=== PATIENT | female | born 1995 | race African-American/Black ===

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

== ENCOUNTER 2024-10-04 10:00 | Inpatient (IN) | payer BC, MEDICAID ==
[~2024-10-04] VITALS: Ht 160 cm; Wt 65.2 kg
--- NOTE | 2024-10-04 10:24 | ED.PDOC ---
GI ASSESSMENT HPI Comments 29 y.o female presents to the ED for a chief complaint of left sided abdominal pain radiating to her back associated with nausea and dysuria that started 2 weeks ago. Patient reports pain is constant, rating a 7/10 on the pain scale at this time but last night presented at a 10/10. Patient reports recent UTI dx 2 weeks ago and was treated with antibiotics in which she completed the course. Patient denies any vomiting, diarrhea, fever, chills, hematuria, urgency, frequency, bloody stool. Patient also mentions taking an at home test yesterday which resulted negative. No medical history or allergies reported. Chief Complaint: Abdominal Pain Time Seen by MD: 10:15 Primary Care Provider: UNKNOWN Reviewed Notes: Nurses Notes, Medications, Allergies Allergies: Coded Allergies: NO KNOWN ALLERGIES (Unverified , 04/28/11) Information Source: Patient Mode of Arrival: Ambulatory Timing: Weeks (2) Duration: Since onset Quality: Aching Vomitus: None Stool: Normal Severity: Moderate Recent: Antibiotics Recent Hx of: Other (UTI ) Pain Location: Epigastric, LUQ, LLQ Modifying Factors: Nothing Associated sign and symptoms: Nausea, Abdominal Pain Past Medical History PAST MEDICAL HISTORY: UTI'S Surgical History: Denies all surgeries INSTRUMENTS SALES REPRESENTATIVE History: No Pertinent INSTRUMENTS SALES REPRESENTATIVE History Family History Family History: Unobtainable Social History Smoker: Non-Smoker Alcohol: Denies ETOH Use Drugs: Denies Drug Use Lives In: Home Constitutional: denies: chills, diaphoresis, fatigue, fever, malaise, sweats, weakness, others EENTM: denies: blurred vision, double vision, ear bleeding, ear discharge, ear drainage, ear pain, ear ringing, eye pain, eye redness, hearing loss, mouth pain, mouth swelling, nasal discharge, nose bleeding, nose congestion, nose pain, photophobia, tearing, throat pain, throat swelling, voice changes, others Respiratory: denies: cough, hemoptysis, orthopnea, SOB at rest, shortness of breath, SOB with excertion, stridor, wheezing, others Cardiovascular: denies: chest pain, dizzy spells, diaphoresis, Dyspnea on exertion, edema, irregular heart beat, left arm pain, lightheadedness, palpitations, PND, syncope, others Gastrointestinal: reports: abdominal pain, nausea; denies: abdomen distended, blood streaked bowels, constipated, diarrhea, dysphagia, difficulty swallowing, hematemesis, melena, poor appetite, poor fluid intake, rectal bleeding, rectal pain, vomiting, others Genitourinary: reports: dysuria; denies: abnormal vagina bleeding, burning, dy spareunia, flank pain, frequency, hematuria, incontinence, pain, , vagina discharge, urgency, others Neurological: denies: dizziness, fainting, headache, left sided numbness, left sided weakness, numbness, paresthesia, pre-existing deficit, right sided numbness, right sided weakness, seizure, speech problems, tingling, tremors, weakness, others Musculoskeletal: denies: back pain, gout, joint pain, joint swelling, muscle pain, muscle stiffness, neck pain, others Integumetry: denies: bruises, change in color, change in hair/nails, dryness, laceration, lesions, lumps, rash, wounds, others Allergic/Immunocompromised: denies: Difficulty Healing, Frequent Infections, Hi ves, Itching, others Hematologic/Lymphatic: denies: anemia, blood clots, easy bleeding, easy bruising, swollen glands, others Endocrine: denies: excessive hunger, excessive sweating, excessive thirst, excessive urination, flushing, intolerance to cold, intolerance to heat, unexplained weight gain, unexplained weight loss, others Psychiatric: denies: anxiety, bipolar disorder, depression, hopeless, panic disorder, schizophrenia, sleepless, suicidal, others All Other Systems: Reviewed and Negative Physical Exam General Appearance: Moderate Distress HEENT: Normal ENT Inspection, Pharynx Normal, TMs Normal Neck: Full Range of Motion, Non-Tender, Normal, Normal Inspection Respiratory: Chest Non-Tender, Lungs Clear, No Accessory Muscle Use, No Respiratory Distress, Normal Breath Sounds Cardiovascular: No Edema, No JVD, No Murmur, No Gallop, Normal Peripheral Pulses, Regular Rate/Rhythm Breast Exam: Deferred Gastrointestinal: LLQ, No Organomegaly, No Pulsatile Mass, Normal Bowel Sounds, Soft, Tenderness Genitalia: Deferred Pelvic: Deferred Rectal: Deferred Extremities: No calf tenderness, Normal capillary refill, No pedal edema Musculoskeletal : Apperance: Normal Neurologic: Alert, coordinator mining products II-XII nml as Tested, Motor Weakness, Normal Affect, Normal Mood, No Sensory Deficits Cerebellar Function: Normal Reflexes: Normal Skin: Dry, Normal Color, Warm Lymphatic: No Adenopathy Was a procedure done? Was a procedure done?: No GI differential Dx Differential Diagnosis: Gastroenteritis, UTI, Electrolyte Imbalance, Food Poisoning, , Bacterial, Viral X-Ray, Labs, Meds, VS Vital Signs Date Time Temp Pulse Resp B/P (MAP) Pulse Ox O2 Delivery O2 Flow Rate FiO2 10/04/24 12:14 98.7 80 18 141/83 (102) 99 98.7 10/04/24 12:14 80 18 99 10/04/24 10:00 98.8 110 17 149/75 (99) 100 98.8 Lab Test 10/04/24 10:48 10/04/24 10:18 Range/Units White Blood Count 7.9 4.4-10.8 10^3/uL Red Blood Count 5.19 4.0-5.20 10^6/uL Hemoglobin 15.2 12.2-16.2 g/dL Hematocrit 45.2 36.0-46.0 % Mean Corpuscular Volume 87.1 80.0-100.0 fL Mean Corpuscular Hemoglobin 29.3 28.0-32.0 pg Mean Corpuscular Hemoglobin Concent 33.6 32.0-36.0 g/dL Red Cell Distribution Width 13.2 11.8-14.3 % Platelet Count 262 140-450 10^3/uL Mean Platelet Volume 9.6 6.9-10.8 fL Neutrophils (%) (Auto) 71.0 37.0-80.0 % Lymphocytes (%) (Auto) 19.9 10.0-50.0 % Monocytes (%) (Auto) 8.0 0.0-12.0 % Eosinophils (%) (Auto) 0.9 0.0-7.0 % Basophils (%) (Auto) 0.2 0.0-2.0 % Neutrophils # (Auto) 5.6 1.6-8.6 10 ^3/uL Lymphocytes # (Auto) 1.6 0.4-5.4 10 ^3/uL Monocytes # (Auto) 0.6 0-1.3 10 ^3/uL Eosinophils # (Auto) 0.1 0-0.8 10 ^3/uL Basophils # (Auto) 0 0-0.2 10 ^3/uL Nucleated Red Blood Cells 0.1 % Sodium Level 137 136-145 mmol/L Potassium Level 4.2 3.5-5.1 mmol/L Chloride Level 102 98-107 mmol/L Carbon Dioxide Level 26 20-31 mmol/L Anion Gap 9 5-15 Blood Urea Nitrogen 9 9-23 mg/dL Creatinine 0.84 0.550-1.02 mg/dL Glomerular Filtration Rate Calc 98 >90 mL/min BUN/Creatinine Ratio 10.7 10.0-20.0 Serum Glucose 97 74-106 mg/dL Calcium Level 10.4 8.7-10.4 mg/dL Total Bilirubin 0.9 0.2-1.0 mg/dL Aspartate Amino Transferase (AST) 19 13-40 U/L Alanine Aminotransferase (ALT) 10 7-40 U/L Alkaline Phosphatase 66 46-116 U/L Total Protein 8.1 5.7-8.2 g/dL Albumin 5.0 H 3.2-4.8 g/dL Urine Color Colorless Yellow Urine Clarity Turbid H Clear Urine pH 6.5 5.0-9.0 Urine Specific [place] 1.008 1.001-1.035 Urine Protein Negative Negative Urine Ketones Negative Negative Urine Blood Trace H Negative /uL Urine Nitrite Negative Negative Urine Bilirubin Negative Negative Urine Urobilinogen Normal Negative mg/dL Urine Leukocyte Esterase 3+ Negative /uL Urine RBC 2 0 - 4 /hpf Urine Microscopic WBC 26 H 0-5 /HPF Urine Squamous Epithelial Cells Few <5 /hpf Urine Bacteria Few H None Seen /hpf Urine Glucose Normal Normal mg/dL Urine Test Negative Negative The patient's urine test is positive for UTI The patient was given Rocephin 1 g IV piggyback IV Hep-Lock was established patient was also given Rocephin 1 g IV piggyback The patient was given morphine for the pain and Zofran for the nausea The CBC is within normal limits. The chemistry panel is within normal limits The patient is still having persistent pain The recommendation of the CAT scan shows that there is a possible abnormality of the left ovary They advise that we get a pelvic ultrasound The patient is being admitted at this time Images Reviewed?: Images reviewed and evaluated by me Time of 1ST Reevaluation: 10:24 Reevaluation 1ST: Unchanged Patient Education/Counseling: Diagnosis, Treatment, Prognosis Family Education/Counseling: No Family Present SEPSIS Sepsis Screen Physician Orders Ct Ab Pel Wo Con-No Oral Or Iv (10/04/24 10:18) Heplock Iv (10/04/24 ) Morphine Sulfate Injection (10/04/24 13:00) Ondansetron Hcl (Zofran) (10/04/24 13:00) Vital Signs Date Time Temp Pulse Resp B/P (MAP) Pulse Ox O2 Delivery O2 Flow Rate FiO2 10/04/24 12:14 98.7 80 18 141/83 (102) 99 98.7 10/04/24 12:14 80 18 99 10/04/24 10:00 98.8 110 17 149/75 (99) 100 98.8 Laboratory Tests Test 10/04/24 10:48 White Blood Count 7.9 10^3/uL (4.4-10.8) Departure 1 Departure Time of Disposition: 12:49 Impression: Primary Impression: Pelvic pain Additional Impression: Intractable abdominal pain Disposition: 09 ADMITTED INPATIENT Admit to: Med Surg Condition: Fair Critical Care Note Critical Care Time?: No Stability Stability form required: Yes Unstable for transfer: ED Physician Assesment (Clinical assesment) I personally scribed for LYNDA SANDOVAL MD ([email or web address]) on 10/04/24 at 10:24. Electronically submitted by Lashae Ni ([facility]). LYNDA SANDOVAL MD Oct 04, 2024 10:24
[2024-10-04 10:55] LABS: Urine Protein, UAD Negative (Negative)
[2024-10-04 11:16] LABS: Hematocrit 45.2 % (36.0-46.0); Hemoglobin 15.2 g/dL (12.2-16.2); Mean Corpuscular Hemoglobin 29.3 pg (28.0-32.0); Mean Corpuscular Volume 87.1 fL (80.0-100.0); Nucleated Red Blood Cells % 0.1 %
[2024-10-04 11:37] LABS: Alanine Aminotransferase 10 U/L (7-40); Albumin 5.0 g/dL (3.2-4.8); Alkaline Phosphatase 66 U/L (46-116); Anion Gap 9 (5-15); BUN/Creatinine Ratio 10.7 (10.0-20.0); Bilirubin, Total 0.9 mg/dL (0.2-1.0); Blood Urea Nitrogen 9 mg/dL (9-23); Calcium 10.4 mg/dL (8.7-10.4); Carbon Dioxide 26 mmol/L (20-31); Chloride 102 mmol/L (98-107); Glucose 97 mg/dL (74-106); Potassium 4.2 mmol/L (3.5-5.1); Sodium 137 mmol/L (136-145); Total Protein 8.1 g/dL (5.7-8.2)
--- NOTE | 2024-10-04 12:45 | DVH ---
Exam: CT CT AB PEL WO CON-NO ORAL OR IV History: left sided abd pain Comparison Study: None Technique: Multidetector spiral CT of the abdomen and pelvis was performed from lung bases to pubic symphysis. Imaging was performed without IV contrast. Axial, coronal and sagittal multiplanar reform ats were obtained from the axial data set by the technologist. Radiation dose : Abdomen/Pelvis: CTDIvol 6 mGy, DLP 338 mGy*cm. Findings: Evaluation of solid organs is limited due to lack of intravenous contrast use. Lung Bases: No acute or significant lung base finding. Normal heart size. No pleural or pericardial effusion. Liver: The liver is normal in size. No focal lesions. Gallbladder and biliary Tree: Unremarkable Spleen: Unremarkable Pancreas: The pancreas is grossly normal in appearance. Adrenal Glands: Unremarkable Kidneys: Kidneys are grossly normal without calculi or hydronephrosis. Bladder: Grossly unremarkable for degree of distention. Bowel: The stomach is grossly normal in appearance. Small bowel and colon are normal in caliber and d istribution. Normal appendix is visualized in the right lower quadrant without findings of appendicit is. Ascites: Absent Lymphadenopathy: No mesenteric, retroperitoneal or periportal lymphadenopathy. Abdominal wall and Mesentery: Unremarkable. Vasculature: The visualized abdominal aorta is normal in size and caliber. Evaluation of abdominal a nd pelvic vessels is limited due to lack of intravenous contrast. Pelvic Organs: Left ovarian appears prominent measuring up to 43 mm, possibly due to a cyst. Musculoskeletal: No aggressive focal bony lesions, acute fractures or dislocation. IMPRESSION: 1. No acute abdominal or pelvic findings. Prominent left ovary measuring up to 43 mm possibly due to a cyst. Consider further evaluation with pelvic ultrasound. Radiation optimization: All CT scans at this facility use at least one of these dose optimization nitza hniques: Automated exposure control mA and/or kV adjustment per patient size (includes targeted exams where dose is matched to clinical indication) or iterative reconstruction. HS:Y
[2024-10-04] MEDS: MORPHINE SULFATE 4 MG/ML SYR/VIAL IV ONE (13:35)
[2024-10-04] MEDS: ONDANSETRON HCL 4 MG/2 ML VIAL IV ONE (13:36)
[2024-10-04] MEDS ORDERED: DOCUSATE SOD 100 MG CAP PO PRN (14:30)
[2024-10-04] MEDS ORDERED: ONDANSETRON HCL 4 MG/2 ML VIAL IV PRN (14:30)
[2024-10-04] MEDS: SODIUM CHLORIDE 0.9% 1,000 ML IV ONE ×2 (14:30→16:15)
--- NOTE | 2024-10-04 14:46 | DVHHP2 ---
History of Present Illness Reason for Visit: abdominal pain History of Present Illness Judy Morales is a 29-year-old female with no significant past medical history who came in for abdominal pain. Patient states she had a UTI a little over a week ago that she was treated with levofloxacin for 7 days, she took the full course, but her symptoms did not improve. Now she is also complaining of flank pain and severe pelvic pain. She states she continues to have dysuria, and frequency with urination. Past Surgical History: None Smoke: No ALCOHOL: occassional Drugs: None Lives: with Family Domestic Violence: Neg Review of Systems Constitutional: No: Fever, Chills, Sweats, Weakness, Malaise, Other Eyes: No: Pain, Vision change, Conjunctivae inflammation, Eyelid inflammation, Other, Redness ENT: No: Ear pain, Ear discharge, Nose pain, Nose discharge, Nose congestion, Mouth pain, Mouth swelling, Throat pain, Throat swelling, Other Respiratory: No: Cough, Dry, Shortness of breath, SOB with excertion, Wheezing, Hemoptysis, Pleuritic Pain, Sputum, Wheezing, Other Cardiovascular: No: Chest Pain, Palpitations, Orthopnea, Paroxysmal Noc. Dyspnea, Edema, Lt Headedness, Other Gastrointestinal: Abdominal Pain; No: Nausea, Vomiting, Diarrhea, Constipation, Melena, Hematochezia, Other Genitourinary: Dysuria, Frequency; No Incontinence, No Hematuria, No Retention, No Other Musculoskeletal: back pain (flank pain); No: other, neck pain, shoulder pain, arm pain, hand pain, leg pain, foot pain Skin: No: Rash, Lesions, Jaundice, Bruising, Other Neurological: No: Weakness, Numbness, Incoordination, Change in speech, Confusion, Seizures, Other Allergies: Coded Allergies: NO KNOWN ALLERGIES (Unverified , 04/28/11) Medications Current Medications Medications Dose Ordered Sig/[place] Route Start Time Stop Time Status Last Admin Dose Admin Acetaminophen/ Hydrocodone Bitart 1 tab Q4HP PRN PO 10/04/24 14:30 UNV Ondansetron HCl 4 mg Q4HP PRN IV 10/04/24 14:30 UNV Docusate Sodium 100 mg BIDPRN PRN PO 10/04/24 14:30 UNV Acetaminophen 650 mg Q6HP PRN PO 10/04/24 14:30 UNV Ceftriaxone Sodium 50 ml @ 100 mls/hr DAILY@09 IV 10/05/24 09:00 UNV Exam Vital Signs Vital Signs Date Time Temp Pulse Resp B/P (MAP) Pulse Ox O2 Delivery O2 Flow Rate FiO2 10/04/24 13:26 Room Air* 0 21 10/04/24 13:26 98.7 7 17 142/83 (102) 99 98.7 General Appearance: Alert, Oriented X3, Cooperative, mild distress HEENT: Atraumatic, PERRLA, Mucous membr. moist/pink Respiratory: Clear to auscultation, Normal air movement Cardiovascular: Regular rate, Normal S1, Normal S2 Abdominal: Normal bowel sounds, Soft, Other (Pelvic pain, flank pain) Extremities: No clubbing, No cyanosis, No edema, Normal pulses, No tenderness/swelling Skin: No rashes, No breakdown, No significant lesion Neuro: Normal gait, Normal speech, Strength at 5/5 X4 ext Psych/Mental Status: Mental status NL, Mood NL Labs/Xrays Labs Test 10/04/24 10:48 10/04/24 10:18 Range/Units White Blood Count 7.9 4.4-10.8 10^3/uL Red Blood Count 5.19 4.0-5.20 10^6/uL Hemoglobin 15.2 12.2-16.2 g/dL Hematocrit 45.2 36.0-46.0 % Mean Corpuscular Volume 87.1 80.0-100.0 fL Mean Corpuscular Hemoglobin 29.3 28.0-32.0 pg Mean Corpuscular Hemoglobin Concent 33.6 32.0-36.0 g/dL Red Cell Distribution Width 13.2 11.8-14.3 % Platelet Count 262 140-450 10^3/uL Mean Platelet Volume 9.6 6.9-10.8 fL Neutrophils (%) (Auto) 71.0 37.0-80.0 % Lymphocytes (%) (Auto) 19.9 10.0-50.0 % Monocytes (%) (Auto) 8.0 0.0-12.0 % Eosinophils (%) (Auto) 0.9 0.0-7.0 % Basophils (%) (Auto) 0.2 0.0-2.0 % Neutrophils # (Auto) 5.6 1.6-8.6 10 ^3/uL Lymphocytes # (Auto) 1.6 0.4-5.4 10 ^3/uL Monocytes # (Auto) 0.6 0-1.3 10 ^3/uL Eosinophils # (Auto) 0.1 0-0.8 10 ^3/uL Basophils # (Auto) 0 0-0.2 10 ^3/uL Nucleated Red Blood Cells 0.1 % Sodium Level 137 136-145 mmol/L Potassium Level 4.2 3.5-5.1 mmol/L Chloride Level 102 98-107 mmol/L Carbon Dioxide Level 26 20-31 mmol/L Anion Gap 9 5-15 Blood Urea Nitrogen 9 9-23 mg/dL Creatinine 0.84 0.550-1.02 mg/dL Glomerular Filtration Rate Calc 98 >90 mL/min BUN/Creatinine Ratio 10.7 10.0-20.0 Serum Glucose 97 74-106 mg/dL Calcium Level 10.4 8.7-10.4 mg/dL Total Bilirubin 0.9 0.2-1.0 mg/dL Aspartate Amino Transferase (AST) 19 13-40 U/L Alanine Aminotransferase (ALT) 10 7-40 U/L Alkaline Phosphatase 66 46-116 U/L Total Protein 8.1 5.7-8.2 g/dL Albumin 5.0 H 3.2-4.8 g/dL Urine Color Colorless Yellow Urine Clarity Turbid H Clear Urine pH 6.5 5.0-9.0 Urine Specific [place] 1.008 1.001-1.035 Urine Protein Negative Negative Urine Ketones Negative Negative Urine Blood Trace H Negative /uL Urine Nitrite Negative Negative Urine Bilirubin Negative Negative Urine Urobilinogen Normal Negative mg/dL Urine Leukocyte Esterase 3+ Negative /uL Urine RBC 2 0 - 4 /hpf Urine Microscopic WBC 26 H 0-5 /HPF Urine Squamous Epithelial Cells Few <5 /hpf Urine Bacteria Few H None Seen /hpf Urine Glucose Normal Normal mg/dL Urine Test Negative Negative Exam: CT CT AB PEL WO CON-NO ORAL OR IV Findings: Evaluation of solid organs is limited due to lack of intravenous contrast use. Lung Bases: No acute or significant lung base finding. Normal heart size. No pleural or pericardial effusion. Liver: The liver is normal in size. No focal lesions. Gallbladder and biliary Tree: Unremarkable Spleen: Unremarkable Pancreas: The pancreas is grossly normal in appearance. Adrenal Glands: Unremarkable Kidneys: Kidneys are grossly normal without calculi or hydronephrosis. Bladder: Grossly unremarkable for degree of distention. Bowel: The stomach is grossly normal in appearance. Small bowel and colon are normal in caliber and distribution. Normal appendix is visualized in the right lower quadrant without findings of appendicitis. Ascites: Absent Lymphadenopathy: No mesenteric, retroperitoneal or periportal lymphadenopathy. Abdominal wall and Mesentery: Unremarkable. Vasculature: The visualized abdominal aorta is normal in size and caliber. Evaluation of abdominal and pelvic vessels is limited due to lack of intravenous contrast. Pelvic Organs: Left ovarian appears prominent measuring up to 43 mm, possibly due to a cyst. Musculoskeletal: No aggressive focal bony lesions, acute fractures or dislocation. IMPRESSION: 1. No acute abdominal or pelvic findings. Prominent left ovary measuring up to 43 mm possibly due to a cyst. Consider further evaluation with pelvic ultrasound. SEPSIS Sepsis Screen Date sepsis recognized/suspect: Oct 04, 2024 Time Sepsis recognized/suspect: 1000 Recent Procedure: No On Antibiotic Therapy: No Respiratory Rate >20: No Heart Rate >90: Yes Temp<36 C (96.8 F) or >38.3 C: No SBP <90 or MAP <65 mmHG: No New Acute Mental Status Change: No Is the patient on CPAP, BIPAP,: No Physician Orders Ct Ab Pel Wo Con-No Oral Or Iv (10/04/24 10:18) Heplock Iv (10/04/24 ) Admit (10/04/24 14:21) Code Status (10/04/24 14:21) Hydrocodone-Acet 5/325mg Tab ([place] 5/32 (10/04/24 14:30) Ondansetron Hcl (Zofran) (10/04/24 14:30) Docusate Sodium Capsule (Colace Capsule) (10/04/24 14:30) Complete Blood Count (10/05/24 04:00) Comprehensive Metabolic Panel (10/05/24 04:00) Condition: Serious (10/04/24 14:21) Acetaminophen Tablet (Tylenol Tablet) (10/04/24 14:30) Ceftriaxone 1gm/50ml D5w (Rocephin) (10/05/24 09:00) Ceftriaxone 1gm/50ml D5w (Rocephin) (10/04/24 14:30) Urine Bacterial Culture (10/04/24 14:21) Vital Signs Date Time Temp Pulse Resp B/P (MAP) Pulse Ox O2 Delivery O2 Flow Rate FiO2 10/04/24 13:26 Room Air* 0 21 10/04/24 13:26 98.7 7 17 142/83 (102) 99 98.7 10/04/24 12:14 98.7 80 18 141/83 (102) 99 98.7 10/04/24 12:14 80 18 99 10/04/24 10:00 98.8 110 17 149/75 (99) 100 98.8 Laboratory Tests Test 10/04/24 10:48 White Blood Count 7.9 10^3/uL (4.4-10.8) Medications Medications Dose Ordered Sig/[place] Route Start Time Stop Time Status Last Admin Dose Admin Ondansetron HCl 4 mg ONCE ONCE IV 10/04/24 13:00 10/04/24 13:01 DC 10/04/24 13:36 4 MG Assessment/Plan Assessment/Plan Assessment: Complicated urinary tract infection, failed PO antibiotics, Intractable abdominal pain, Possible Pyelonephritis, Plan: Admit to Med-Surg, IV antibiotics, IV hydration, Urine culture, Pain control, Plan discussed with: Patient My Orders Orders - KOKO GUZMAN Procedure Category Date Status Time Admit ADMIT 10/04/24 Transmitted 14:21 Code Status CODE 10/04/24 Transmitted 14:21 Hydrocodone-Acet PHA 10/04/24 Logged 5/325mg Tab ([place] 14:30 Ondansetron Hcl PHA 10/04/24 Logged (Zofran) 14:30 Docusate Sodium PHA 10/04/24 Logged Capsule (Colace 14:30 Complete Blood Count LAB 10/05/24 Verified 04:00 Comprehensive LAB 10/05/24 Verified Metabolic Panel 04:00 Condition: Serious KAYLEE 10/04/24 In Process 14:21 Acetaminophen Tablet PHA 10/04/24 Logged (Tylenol Tablet) 14:30 Ceftriaxone 1gm/50ml PHA 10/05/24 Logged D5w (Rocephin) 09:00 Ceftriaxone 1gm/50ml PHA 10/04/24 Logged D5w (Rocephin) 14:30 Urine Bacterial DAVIDSON 10/04/24 Logged Culture 14:21 Date of Service: Oct 04, 2024 Billing Provider: KOKO GUZMAN Common Visit Codes: [id number] INP/OBS CARE (MOD) KOKO GUZMAN MEAT LUGGER Oct 04, 2024 14:46
[2024-10-04 15:28] VITALS: BP 121/71; PULSE 85; RESP 17; TEMP 98.2; O2SAT 99
[2024-10-04] MEDS: ACETAMINOPHEN 325 MG TAB PO PRN (16:04)
[2024-10-04 17:15] VITALS: BP 119/65; PULSE 67; RESP 18; TEMP 98.4; O2SAT 100
[2024-10-04] MEDS: cefTRIAXone 1GM/50ML D5W 50 ML IV ONE (17:23)
[2024-10-04 23:01] VITALS: BP 116/72; PULSE 78; RESP 20; TEMP 98.4; O2SAT 97
[2024-10-05 07:17] LABS: Hematocrit 38.5 % (36.0-46.0); Hemoglobin 13.3 g/dL (12.2-16.2); Mean Corpuscular Hemoglobin 29.8 pg (28.0-32.0); Mean Corpuscular Volume 86.4 fL (80.0-100.0); Nucleated Red Blood Cells % 0.0 %
[2024-10-05 07:35] LABS: Albumin 4.3 g/dL (3.2-4.8); Alkaline Phosphatase 56 U/L (46-116); Anion Gap 8 (5-15); BUN/Creatinine Ratio 12.9 (10.0-20.0); Blood Urea Nitrogen 11 mg/dL (9-23); Calcium 9.8 mg/dL (8.7-10.4); Carbon Dioxide 26 mmol/L (20-31); Chloride 103 mmol/L (98-107); Glucose 95 mg/dL (74-106); Potassium 4.2 mmol/L (3.5-5.1); Sodium 137 mmol/L (136-145); Total Protein 6.9 g/dL (5.7-8.2)
[2024-10-05 07:36] LABS: Bilirubin, Total 0.5 mg/dL (0.2-1.0)
[2024-10-05 07:37] LABS: Alanine Aminotransferase < 9 U/L (7-40)
[2024-10-05 08:00] VITALS: PULSE 79; RESP 20; O2SAT 100
[2024-10-05 09:00] VITALS: BP 112/73; PULSE 79; RESP 20; TEMP 98.4; O2SAT 100
[2024-10-05] MEDS: cefTRIAXone 1GM/50ML D5W 50 ML IV SCH (09:27)
[2024-10-05 12:45] VITALS: BP 116/68; PULSE 62; RESP 20; TEMP 98.6; O2SAT 99
--- NOTE | 2024-10-05 13:36 | DVHPNRES ---
Progress Note Date Seen: Oct 05, 2024 Resident Creating Document: CRISTINO SELBY Has the PT tested + for MRSA If YES, has PT been informed?: No Medical Necessity Reason Pt with a Central, PICC or Fol: No Subjective Review of Systems This is 29-year-old female with past medical history of UTI, who came to the hospital for abdominal pain. Patient reports that abdominal pain started approximately 2 weeks ago and has become significantly worse over the past 2 days. Patient also reports a prior ER visit 3 weeks ago for similar abdominal pain, during which a diagnosis of UTI was made. Patient was prescribed a 7-day course of levofloxacin at that time but reports no improvement in symptoms. Patient complains with flank pain and severe pelvic pain. Patient continue to have dysuria and frequency with urination. Abdomen/Pelvic CT- No acute abdominal or pelvic findings. Prominent left ovary measuring up to 43 mm possibly due to a cyst. Consider further evaluation with pelvic ultrasound. Pelvic US- Patient refused transvaginal examination. Enlarged uterus. Right ovary not visualized. 4 cm left ovarian cyst. HIV 1&2 Antibody (LAB) - Negative Review of Systems Constitutional: No: Fever, Chills, Sweats, Weakness, Malaise, Other Eyes: No: Pain, Vision change, Conjunctivae inflammation, Eyelid inflammation, Other, Redness ENT: No: Ear pain, Ear discharge, Nose pain, Nose discharge, Nose congestion, Mouth pain, Mouth swelling, Throat pain, Throat swelling, Other Respiratory: No: Cough, Dry, Shortness of breath, SOB with excertion, Wheezing, Hemoptysis, Pleuritic Pain, Sputum, Wheezing, Other Cardiovascular: No: Chest Pain, Palpitations, Orthopnea, Paroxysmal Noc. Dyspnea, Edema, Lt Headedness, Other Gastrointestinal: Abdominal Pain; No: Nausea, Vomiting, Diarrhea, Constipation, Melena, Hematochezia, Other Genitourinary: Dysuria, Frequency; No Incontinence, No Hematuria, No Retention, No Other Musculoskeletal: back pain (flank pain); No: other, neck pain, shoulder pain, arm pain, hand pain, leg pain, foot pain Skin: No: Rash, Lesions, Jaundice, Bruising, Other Neurological: No: Weakness, Numbness, Incoordination, Change in speech, Confusion, Seizures, Other Allergies: Coded Allergies: NO KNOWN ALLERGIES (Unverified , 04/28/11) Objective vital signs Vital Sign Date Time Temp Pulse Resp B/P (MAP) Pulse Ox O2 Delivery O2 Flow Rate FiO2 10/05/24 12:45 98.6 62 20 116/68 (84) 99 98.6 10/05/24 08:00 Room Air* 0 21 Total Intake and Output 10/04/24 10/04/24 10/05/24 15:00 23:00 07:00 Intake Total 240 ml 286 ml Balance 240 ml 286 ml medications Current Medications Medications Dose Ordered Sig/[place] Route Start Time Stop Time Status Last Admin Dose Admin Acetaminophen/ Hydrocodone Bitart 1 tab Q4HP PRN PO 10/04/24 14:30 Ondansetron HCl 4 mg Q4HP PRN IV 10/04/24 14:30 Docusate Sodium 100 mg BIDPRN PRN PO 10/04/24 14:30 Acetaminophen 650 mg Q6HP PRN PO 10/04/24 14:30 10/04/24 16:04 650 MG Ceftriaxone Sodium 50 ml @ 100 mls/hr DAILY@09 IV 10/05/24 09:00 10/05/24 09:27 100 MLS/HR Doxycycline Monohydrate 100 mg Q12HR PO 10/05/24 22:00 laboratory and microbiology Laboratory Tests 10/05/24 06:47 Test 10/05/24 06:47 Range/Units Serum Glucose 95 74-106 mg/dL Microbiology Date/Time Source Procedure Growth Status 10/04/24 10:18 Voided Urine Urine Culture - Preliminary Resulted Labs and/or images reviewed: Labs reviewed by me, Image(s) reviewed by me Problem List/Assessment/Plan Problem List/Assessment/Plan # Complicated urinary tract infection, failed PO antibiotics, -continue Doxycycline monohydrate (Vibramycin Tablet) -continue Ceftriaxone Sodium -continue Acetaminophen (Tylenol Tablet) -continue Hydrocodone Bitart/Acetaminophen (Narco 5/325MG Tab) # Intractable abdominal pain possible due to Pyelonephritis/PID/STI -HIV 1&2 Antibody (LAB) - Negative -Abdomen/Pelvic CT- No acute abdominal or pelvic findings. Prominent left ovary measuring up to 43 mm possibly due to a cyst. Consider further evaluation with pelvic ultrasound. -Pelvic US- Patient refused transvaginal examination. Enlarged uterus. Right ovary not visualized. 4 cm left ovarian cyst. -Pending Urine Bacterial Culture ([facility]) -Pending Chlamydia/GC Amplification (LAB) Goal of care discussed with the patient for more than 20 minutes full code Plan discussed with Dr. Navarro Plan discussed with: Patient, Other (RN) Date of Service: Oct 05, 2024 Billing Provider: KEVON NAVARRO MD Common Visit Codes: [id number] INP/OBS CARE(HIGH) CRISTINO SELBY RESIDENT Oct 05, 2024 13:36 D[place] HURLEY RESIDENT Oct 05, 2024 17:17 KEVON NAVARRO MD Oct 07, 2024 14:28
[2024-10-05] MEDS: DOXYCYCLINE 100 MG TAB/CAP PO ONE (13:42)
--- NOTE | 2024-10-05 14:10 | DVH ---
INDICATION: Left ovarian cyst TECHNIQUE: Multiple real-time grayscale transabdominal sonographic images along with color and duplex Doppler of the uterus and ovaries were obtained. COMPARISON: None FINDINGS: The uterus measures 9 x 6 x 4 cm. The endometrial stripe measures 1.2cm. Right ovary not seen. Left ovary measures 5 x 4 x 5 cm. 4 cm left ovarian cyst. Vascular flow seen i n the left ovary. IMPRESSION: 1. Patient refused transvaginal examination. Enlarged uterus. Right ovary not visualized. 4 cm left ovarian cyst.
[2024-10-05 20:00] VITALS: PULSE 85; RESP 20; O2SAT 100
[2024-10-05 21:00] VITALS: BP 124/74; PULSE 85; RESP 20; TEMP 98.3; O2SAT 98
[2024-10-05] MEDS: DOXYCYCLINE 100 MG TAB/CAP PO SCH (21:52)
[2024-10-06] MEDS: HYDROcodone-ACET 5/325MG TAB PO PRN (00:20)
[2024-10-06 01:00] VITALS: BP 115/83; PULSE 81; RESP 20; TEMP 98; O2SAT 97
[2024-10-06 09:00] VITALS: BP 118/93; PULSE 85; RESP 17; TEMP 98.3; O2SAT 97
[2024-10-06 11:53] LABS: Hematocrit 42.0 % (36.0-46.0); Hemoglobin 14.2 g/dL (12.2-16.2); Mean Corpuscular Hemoglobin 29.2 pg (28.0-32.0); Mean Corpuscular Volume 86.6 fL (80.0-100.0); Nucleated Red Blood Cells % 0.0 %
[2024-10-06 12:00] LABS: Chloride 103 mmol/L (98-107); Potassium 4.3 mmol/L (3.5-5.1); Sodium 138 mmol/L (136-145)
[2024-10-06 12:01] LABS: Anion Gap 7 (5-15); Carbon Dioxide 28 mmol/L (20-31)
[2024-10-06 12:02] LABS: Calcium 10.3 mg/dL (8.7-10.4)
[2024-10-06 12:06] LABS: BUN/Creatinine Ratio 14.6 (10.0-20.0); Blood Urea Nitrogen 12 mg/dL (9-23); Glucose 93 mg/dL (74-106)
[2024-10-06] MEDS: FLUCONAZOLE 100 MG TAB PO ONE (12:17)
[2024-10-06 13:00] VITALS: BP 110/66; PULSE 74; RESP 18; TEMP 98; O2SAT 98
[2024-10-06] MEDS ORDERED: CEPH250C PO (14:06)
[2024-10-06] MEDS ORDERED: FLUC100T34 PO (14:06)
--- NOTE | 2024-10-06 15:21 | DVHDSRES ---
Discharge Summary Date of Admission Resident Creating Document: CRISTINO SELBY RESIDENT Oct 04, 2024 at 14:21 Date of Discharge: Oct 06, 2024 Admitting Diagnosis Abdominal pain Labs/Diagnostic Data: Laboratory Results Test 10/06/24 11:05 10/05/24 06:47 10/04/24 10:18 White Blood Count 6.7 10^3/uL (4.4-10.8) Red Blood Count 4.86 10^6/uL (4.0-5.20) Hemoglobin 14.2 g/dL (12.2-16.2) Hematocrit 42.0 % (36.0-46.0) Mean Corpuscular Volume 86.6 fL (80.0-100.0) Mean Corpuscular Hemoglobin 29.2 pg (28.0-32.0) Mean Corpuscular Hemoglobin Concent 33.8 g/dL (32.0-36.0) Red Cell Distribution Width 13.3 % (11.8-14.3) Platelet Count 236 10^3/uL (140-450) Mean Platelet Volume 9.5 fL (6.9-10.8) Neutrophils (%) (Auto) 64.5 % (37.0-80.0) Lymphocytes (%) (Auto) 23.8 % (10.0-50.0) Monocytes (%) (Auto) 10.5 % (0.0-12.0) Eosinophils (%) (Auto) 1.0 % (0.0-7.0) Basophils (%) (Auto) 0.2 % (0.0-2.0) Neutrophils # (Auto) 4.3 10 ^3/uL (1.6-8.6) Lymphocytes # (Auto) 1.6 10 ^3/uL (0.4-5.4) Monocytes # (Auto) 0.7 10 ^3/uL (0-1.3) Eosinophils # (Auto) 0.1 10 ^3/uL (0-0.8) Basophils # (Auto) 0 10 ^3/uL (0-0.2) Nucleated Red Blood Cells 0.0 % Sodium Level 138 mmol/L (136-145) Potassium Level 4.3 mmol/L (3.5-5.1) Chloride Level 103 mmol/L (98-107) Carbon Dioxide Level 28 mmol/L (20-31) Anion Gap 7 (5-15) Blood Urea Nitrogen 12 mg/dL (9-23) Creatinine 0.82 mg/dL (0.550-1.02) Glomerular Filtration Rate Calc 100 mL/min (>90) BUN/Creatinine Ratio 14.6 (10.0-20.0) Serum Glucose 93 mg/dL (74-106) Calcium Level 10.3 mg/dL (8.7-10.4) Total Bilirubin 0.5 mg/dL (0.2-1.0) Aspartate Amino Transferase (AST) 16 U/L (13-40) Alanine Aminotransferase (ALT) < 9 U/L (7-40) Alkaline Phosphatase 56 U/L (46-116) Total Protein 6.9 g/dL (5.7-8.2) Albumin 4.3 g/dL (3.2-4.8) HIV (1&2) Antibody Negative (Negative) Urine Color Colorless (Yellow) Urine Clarity Turbid (Clear) Urine pH 6.5 (5.0-9.0) Urine Specific Whiting 1.008 (1.001-1.035) Urine Protein Negative (Negative) Urine Ketones Negative (Negative) Urine Blood Trace /uL (Negative) Urine Nitrite Negative (Negative) Urine Bilirubin Negative (Negative) Urine Urobilinogen Normal mg/dL (Negative) Urine Leukocyte Esterase 3+ /uL (Negative) Urine RBC 2 /hpf (0 - 4) Urine Microscopic WBC 26 /HPF (0-5) Urine Squamous Epithelial Cells Few /hpf (<5) Urine Bacteria Few /hpf (None Seen) Urine Glucose Normal mg/dL (Normal) Urine Test Negative (Negative) Other Laboratory Tests 10/06/24 11:05 Brief Hx & Hospital Course: This is 29-year-old female with past medical history of UTI, who came to the hospital for abdominal pain. Patient reports that abdominal pain started approximately 2 weeks ago and has become significantly worse over the past 2 days. Patient also reports a prior ER visit 3 weeks ago for similar abdominal pain, during which a diagnosis of UTI was made. Patient was prescribed a 7-day course of levofloxacin at that time but reports no improvement in symptoms. Patient complains with flank pain and severe pelvic pain. Patient continue to have dysuria and frequency with urination. Abdomen/Pelvic CT- No acute abdominal or pelvic findings. Prominent left ovary measuring up to 43 mm possibly due to a cyst. Consider further evaluation with pelvic ultrasound. Pelvic US- Patient refused transvaginal examination. Enlarged uterus. Right ovary not visualized. 4 cm left ovarian cyst. HIV 1&2 Antibody (LAB) - Negative. Urine Bacterial Culture report >100,000 CFU/mL Lactobacillus species. Patient is being discharged home on Cephalexin (Keflex Capsule) 500 Mg PO TID 5 Days and Fluconazole 200 Mg PO daily 3 days. Patient has communicated understanding. General Appearance: Alert, Oriented X3, Cooperative, mild distress HEENT: Atraumatic, PERRLA, Mucous membr. moist/pink Respiratory: Clear to auscultation, Normal air movement Cardiovascular: Regular rate, Normal S1, Normal S2 Abdominal: Normal bowel sounds, Soft, Other (Pelvic pain, flank pain) Extremities: No clubbing, No cyanosis, No edema, Normal pulses, No tenderness/swelling Skin: No rashes, No breakdown, No significant lesion Neuro: Normal gait, Normal speech, Strength at 5/5 X4 ext Psych/Mental Status: Mental status NL, Mood NL Operations or Procedures Exam: CT CT AB PEL WO CON-NO ORAL OR IV IMPRESSION: 1. No acute abdominal or pelvic findings. Prominent left ovary measuring up to 43 mm possibly due to a cyst. Consider further evaluation with pelvic ultrasound. Radiation optimization: All CT scans at this facility use at least one of these dose optimization techniques: Automated exposure control mA and/or kV adjustment per patient size (includes targeted exams where dose is matched to clinical indication) or iterative reconstruction. HS:Y INDICATION: Left ovarian cyst TECHNIQUE: Multiple real-time grayscale transabdominal sonographic images along with color and duplex Doppler of the uterus and ovaries were obtained. COMPARISON: None FINDINGS: The uterus measures 9 x 6 x 4 cm. The endometrial stripe measures 1.2cm. Right ovary not seen. Left ovary measures 5 x 4 x 5 cm. 4 cm left ovarian cyst. Vascular flow seen in the left ovary. IMPRESSION: 1. Patient refused transvaginal examination. Enlarged uterus. Right ovary not visualized. 4 cm left ovarian cyst. Urine Bacterial Culture Preliminary Report >100,000 CFU/mL Lactobacillus species Susceptibility testing not routinely done on this isolate. Approximately 40,000 CFU/mL Yeast Identification to follow. <10,000 CFU/mL Gram Positive Barby. Resembles urogenital contaminants. Condition at Discharge: Stable (RN) Final Diagnosis/Problems List # Complicated urinary tract infection, failed PO antibiotics, # Intractable abdominal pain possible due to Pyelonephritis/PID/STI Discharge Disposition: Home SNF Discharge Will this Physician continue t: No (RN) Discharge Instruct/Medications Diet: Regular Activity: No Restrictions, As Tolerated Follow Up/Referral: PCP Medications: Cephalexin (Keflex Capsule) 500 Mg PO TID 5 Days Fluconazole 200 Mg PO daily 3 days Scheduled Cephalexin (Keflex Capsule), 500 MG PO TID Fluconazole (Fluconazole), 200 MG PO DAILY Discharge Statement: "Patient was advised to return to the ER or call 911 if any headaches, dizziness, shortness of breath, chest pain, abdominal pain, bleeding, fevers, or worsening of medical condition. Patient was counseled about treatment plan, medications, possible side effects, patientverbalized understanding. All questions were answered to the best of my ability. This discharge took greater then 30 minutes in planning, reviewing documentation, counseling the patient, and discussing with other team members." ASSESSMENT ASSESSMENT Assessment # Complicated urinary tract infection, failed PO antibiotics, # Intractable abdominal pain possible due to Pyelonephritis/PID/STI Date of Service: Oct 06, 2024 Billing Provider: ELOISA WEEMS MD Common Visit Codes: 85770-BUH/OBS DISCH DAY >30min CRISTINO SELBY Oct 06, 2024 15:21 ELOISA WEEMS MD Oct 06, 2024 17:08
[2024-10-07] MEDS ORDERED: FLUCONAZOLE 100 MG TAB PO SCH (10:00)
== END 2024-10-06 15:35 | disposition home or self-care (01) | DRG 758 ==
LOC: ER 10:05 → OVERFLOW 14:21 → WEST WING 23:12
PROVIDERS: ADMIT Student in an Organized Health Care Education/Training Program; ATTEND Emergency Medicine
DX: N73.9 Female pelvic inflammatory disease, unspecified (principal); N12 Tubulo-interstitial nephritis, not specified as acute or chronic; A64 Unspecified sexually transmitted disease
CPT/HCPCS: 36415; 74176; 76856; 80048; 80053; 81001; 81025; 85025; 86703; 87086; 96365; G0378; J2405